=== PATIENT | female | born 1985 | race African-American/Black ===

== ENCOUNTER 2016-07-19 20:31 | Emergency (ER) | payer OTHER ==
[2016-07-19 20:42] VITALS: BP 133/68; PULSE 79; TEMP 98.1; BMI 32.1
[2016-07-19 23:14] LABS: MCH 22.1 pg (25.7-33.7); MCHC 30.7 g/dl (32.0-36.0); MEAN CELL VOLUME 72.2 fl (80-96); MEAN PLT VOLUME 8.8 fl (7.5-11.1); PLATELET COUNT 343 K/MM3 (134-434); RDW 17.6 % (11.6-15.6); WHITE BLOOD COUNT 11.3 K/mm3 (4.0-10.0)
--- NOTE | 2016-07-19 23:19 | PDOC ---
[id number] 4d HEADACHE Time Seen by Provider: 07/19/16 20:55 - History of Present Illness Initial Comments: 07/19/16 22:48 CHIEF COMPLAINT: headache HISTORY OF PRESENT ILLNESS: 30-year-old female with history of anxiety, depression, asthma, anemia, and heart murmur, presents to ED with headache 4 days. Patient states she "feels like it is more than a headache because I feel like I am stumbling when I walk, I feel like I'm sensitive to light, and I have pain to my neck, head, and behind both of my eyes." She reports that the pain behind her R eye is worse than the pain behind her left eye. She also complains of shortness of breath and chest pain. She also reports pain to her spine. Patient states that she went to [facility] two days ago and was told that "all this was from anemia." No recent travel or sick contacts. PAST MEDICAL HISTORY: as per HPI FAMILY HISTORY: Denies SOCIAL HISTORY: Lives at home with 6 children. Occupation: unemployed. Denies tobacco, alcohol, illicit drug use. SURGICAL HISTORY: Gastric sleeve 2013, cholecystectomy 2004, Four c-sections, last 2012. ALLERGIES: No known drug allergies REVIEW OF SYSTEMS General/Constitutional: Denies fever or chills. Denies weakness, weight change. HEENT: Denies change in vision. Denies ear pain or discharge. Denies sore throat. Cardiovascular: Denies chest pain or shortness of breath. Respiratory: Denies cough, wheezing, or hemoptysis. Gastrointestinal: Denies nausea, vomiting, diarrhea or constipation. Denies rectal bleeding. Genitourinary: Denies dysuria, frequency, or change in urination. Musculoskeletal: Neck and back pain. Denies joint or muscle swelling or pain. Skin and breasts: Denies rash or easy bruising. Neurologic: Headache. Denies loss of consciousness, or loss of sensation. Psychiatric: History of depression and anxiety. PHYSICAL EXAM General Appearance: Well-appearing, appropriately dressed. No apparent distress , no intoxication. HEENT: EOMI, PERRLA, normal ENT inspection, normal voice, TMs normal, pharynx normal. No conjunctival pallor. No photophobia, scleral icterus. Neck: Supple. No midline tenderness to cervical spine. Trachea midline. No tenderness, rigidity, carotid bruit, stridor, lymphadenopathy, or thyromegaly. Respiratory/Chest: Lungs CTAB. No shortness of breath, chest tenderness, respiratory distress, accessory muscle use. No crackles, rales, rhonchi, stridor , wheezing, dullness Cardiovascular: RRR. S1, S2. No JVD, murmur, bradycardia, tachycardia. Vascular Pulses: Dorsalis-Pedis (R): 2+, Dorsalis-Pedis (L): 2+ Gastrointestinal/Abdominal: Normal bowel sounds. Abdomen soft, non-distended. No tenderness or rebound tenderness. No organomegaly, pulsatile mass, guarding , hernia, hepatomegaly, splenomegaly. Lymphatic: No adenopathy, tenderness. Musculoskeletal/Extremities: No midline tenderness to thoracic or lumbar spine. Normal inspection. FROM of all extremities, normal capillary refill. Pelvis Stable. No CVA tenderness. No tenderness to extremities, pedal edema, swelling, erythema or deformity. Integumentary: Appropriate color, dry, warm. No cyanosis, erythema, jaundice or rash Neurologic: Photophobia. brickmason helper II-XII intact. Fully oriented, alert. Appropriate mood/affect. Motor strength 5/5. No appreciable EOM palsy, facial droop or sensory deficit. A&Ox3, follow commands, respond appropriately CN2-12: conjugate gaze, pupil round, equal and reactive to light. Visual field full to confrontation. EOMI without nystagmus, pursuit is smooth without saccade. Facial sensation and muscle activation intact bilaterally. Hearing intact bilaterally. Palate elevate symmetrically. Shoulder shrug and neck turn full strength. Tongue protrude midline. Motor: UE and LE strength 5/5 throughout bilaterally. Muscle tone and bulk normal. Sensory: pin prick & temp : BUE & BLE intact and equal bilaterally Vibration & propioception: intact bilaterally at 1st MCP and MTP joints. no sensory level noted on trunk y. Cerebellar: Rapid-alternating movement with regular rhythm without bradykinesia. [id number]-fm-[id number] and jaeo-ax-rvkl intact bilaterally without dysmetria or overshoot. Gait narrow based. No shuffling. Full hip flexion and knee flexion. Negative Romberg No involuntary movement noted. No pronator drift. No clonus. Past History - Past Medical History Allergies/Adverse Reactions: Allergies Allergy/AdvReac Type Severity Reaction Status Date / Time ceftriaxone sodium Allergy Hives Verified 07/19/16 20:38 [From [place]] Home Medications: Ambulatory Orders Albuterol Sulfate Inhaler - [Ventolin HFA Inhaler -] 2 inh PO Q4H PRN #1 inh Diphenhydramine HCl [Benadryl -] 25 mg PO ASDIR 01/19/16 Ibuprofen [Motrin -] 600 mg PO TID PRN 01/19/16 Prednisone [Deltasone] 20 mg PO DAILY #4 tablet 01/20/16 Naproxen 250 mg PO BID #20 tablet 07/20/16 Anemia: Yes Asthma: Yes Cancer: No Cardiac Disorders: Yes (MURMUR) CVA: No COPD: No CHF: No Dementia: No Diabetes: No GI Disorders: No Disorders: No HTN: No Hypercholesterolemia: No Liver Disease: No Suicide Attempt (Hx): No Seizures: No Thyroid Disease: No - Surgical History Abdominal Surgery: No Appendectomy: No Cardiac Surgery: No Cholecystectomy: Yes Lung Surgery: No Neurologic Surgery: No Orthopedic Surgery: No - Reproductive History (#): 8 Para: 5 Ectopic : Yes (1) Therapeutic (s) & number: Yes Spontaneous : 1 - Immunization History Immunization Up to Date: Yes - Psycho/Social/Smoking Cessation Hx Anxiety: No Suicidal Ideation: No Smoking Status: Yes Smoking History: Never smoked Have you smoked in the past 12 months: No Number of Cigarettes Smoked Daily: 0 Information on smoking cessation initiated: No Hx Alcohol Use: No Drug/Substance Use Hx: No Substance Use Type: None Hx Substance Use Treatment: No *Physical Exam - Vital Signs Last Vital Signs Temp Pulse Resp BP Pulse Ox 98.1 F 79 16 133/68 100 07/19/16 20:38 07/19/16 20:38 07/19/16 20:38 07/19/16 20:38 07/19/16 20:38 ED Treatment Course - LABORATORY CBC & Chemistry Diagram: 07/19/16 22:20 07/19/16 22:52 - RADIOLOGY Radiology Studies Ordered: Category Date Time Status HEAD CT WITHOUT CONTRAST [CT] Stat CT Scan 07/19/16 21:43 Ordered Medical Decision Making - Medical Decision Making 30-year-old female with history of anxiety, depression, asthma, anemia, and heart murmur, presents to ED with headache 4 days. -CBC, CMP, Upreg -IVF, Toradol, Reglan Patient reassessed, states she is feeling much better at this tiem and is ready to go home. Will discharge to home with Naproxen and referral to neuro. Advised patient to f/u with PMD and neuro, advised jessica signs and symptoms for return to ED. PAtient verbalized understanding and agrees to plan. *DC/Admit/Observation/Transfer Diagnosis at time of Disposition: Headache Qualifiers: Headache type: unspecified Headache chronicity pattern: unspecified pattern Intractability: not intractable Qualified Code(s): R51 - Headache Iron deficiency anemia Qualifiers: Iron deficiency anemia type: unspecified iron deficiency Qualified Code(s): D50.9 - Iron deficiency anemia, unspecified - Discharge Dispostion Disposition: HOME Condition at time of disposition: Stable Admit: No - Prescriptions Prescriptions: Naproxen 250 mg PO BID #20 tablet - Referrals Referrals: Mita Melgar MD [Primary Care Provider] - Shlomo Junior MD [Staff Physician] - - Patient Instructions Printed Discharge Instructions: DI for Iron Deficiency Anemia-Adult Additional Instructions: Please take medications as prescribed and follow up with your primary care doctor and street supervisor next week. If you experience fever, nausea, vomiting, diarrhea, rectal bleeding, dark stool, chest pain, shortness of breath, or any NEW or WORSENING symptoms, please return to the ER.
--- NOTE | 2016-07-19 23:44 | PDOC ---
[id number]/68 100 07/19/16 20:38 07/19/16 20:38 07/19/16 20:38 07/19/16 20:38 07/19/16 20:38 ED Treatment Course - LABORATORY CBC & Chemistry Diagram: 07/19/16 22:20 07/19/16 22:52 - ADDITIONAL ORDERS Additional order review: Laboratory Results 07/19/16 23:03 Urine HCG, Qual Negative 07/19/16 22:20 RBC 4.40 MCV 72.2 L MCHC 30.7 L RDW 17.6 H MPV 8.8 Medical Decision Making - Medical Decision Making 07/19/16 23:44 Pt seen by the Advanced Practice Provider under my direct supervision Ancillary studies reviewed I agree with plan as outlined by the Advanced Practice Provider JOSSE Vidal *DC/Admit/Observation/Transfer Diagnosis at time of Disposition: Headache, Iron deficiency anemia - Discharge Dispostion Disposition: HOME - Prescriptions Prescriptions: Naproxen 250 mg PO BID #20 tablet - Referrals Referrals: Shlomo Junior MD [Staff Physician] - Mita Melgar MD [Primary Care Provider] - - Patient Instructions Printed Discharge Instructions: DI for Iron Deficiency Anemia-Adult Additional Instructions: Please take medications as prescribed and follow up with your primary care doctor and senior category manager next week. If you experience fever, nausea, vomiting, diarrhea, rectal bleeding, dark stool, chest pain, shortness of breath, or any NEW or WORSENING symptoms, please return to the ER.
[2016-07-19 23:47] LABS: ALBUMIN 3.9 g/dl (3.4-5.0); ANION GAP 10 (8-16); BILIRUBIN,TOTAL 0.2 mg/dL (0.2-1.0); CALCIUM 8.8 mg/dL (8.5-10.1); CO2 28 mmol/L (21-32); CREATININE 0.8 mg/dL (0.55-1.02); GLUCOSE,RANDOM 89 mg/dL (74-106); SGPT/ALT 20 U/L (12-78); TOT PROT 7.5 g/dl (6.4-8.2)
[2016-07-19 23:48] LABS: ALK PHOS 76 U/L (45-117)
[2016-07-19 23:49] LABS: SGOT/AST 23 U/L (15-37)
[2016-07-20 00:29] LABS: ERYTHROCYTE SEDIMENTATION RATE 28 mm/hr (0-20)
--- NOTE | 2016-07-20 16:20 | EKG ---
Test Reason : Blood Pressure : / mmHG Vent. Rate : 072 BPM Atrial Rate : 072 BPM P-R Int : 136 ms QRS Dur : 098 ms QT Int : 406 ms P-R-T Axes : 058 060 042 degrees QTc Int : 444 ms NORMAL SINUS RHYTHM NORMAL ECG WHEN COMPARED WITH ECG OF 15-MAY-2006 00:52, NO SIGNIFICANT CHANGE WAS FOUND Confirmed by MOO HAYWOOD MD ([id number]) on 07/20/2016 4:20:11 PM Referred By: Confirmed By:MOO HAYWOOD MD
== END 2016-07-20 01:48 | disposition home or self-care (01) ==
LOC: JER 20:31
DX: R51 Headache (principal); D50.9 Iron deficiency anemia, unspecified; F41.8 Other specified anxiety disorders
CPT/HCPCS: 36415; 70450-TC; 80053; 84703; 85027; 85651; 93005; 93010; 99283-25

== ENCOUNTER 2023-04-06 05:04 | Emergency (ER) | payer OTHER ==
[2023-04-06] MEDS ORDERED: ACETAMINOPHEN 500 MG TABLET (FP) PO ONE (05:18)
[2023-04-06 05:19] VITALS: TEMP 97.6; BMI 34.7
[2023-04-06] MEDS ORDERED: ACETAMINOPHEN 325 MG TABLET (FP) ONE (05:28)
[2023-04-06 08:14] VITALS: BP 106/55; PULSE 88; RESP 20
== END 2023-04-06 08:43 | disposition home or self-care (01) ==
LOC: JER 05:04
DX: R68.84 Jaw pain (principal); Y04.8XXA Assault by other bodily force, initial encounter
CPT/HCPCS: 70450-TC; 70486-TC; 72125-TC; 99284-25